=== PATIENT | female | born 1935 | race Caucasian/White ===

== ENCOUNTER 2016-10-22 13:45 | Emergency (ER) | payer MEDICARE, BC ==
--- NOTE | ~2016-10-22 | CT4 ---
[facility]. [facility] A Service of [facility] & [facility] RADIOLOGY TEXT RESULTS PATIENT: CAROLINE BERGER LOCATION: SED : 36 UNIT #: [id number] AGE: [address]: Micheline Mcclure MD SEX: F ORDER DR: [id number] [place] [id number] E MR#: [id number] Acc #: [id number] NAME: CAROLINE BERGER : 1935 SEX: F STUDY DATE/TIME: 10/22/2016 16:12 UNIT: SED ROOM: STUDY DESCRIPTION: CT Abd and Pelv Wo Cont Attending Physician: Micheline Mcclure M.D. Ordering Physician: Micheline Mcclure M.D. Primary Care Physician: Emiliano Prakash M.D. MEDICAL IMAGING REPORT This report is preliminary unless electronic signature is present. EXAM CT abdomen and pelvis, 10/22/2016 INDICATION Body aches, chills and diarrhea for 1 week. Patient does not feel good. TECHNIQUE Axial images were obtained through the abdomen and pelvis following oral contrast administration. Multiplanar reformats were obtained. No comparison. This CT exam was performed with one or more of the following radiation dose reduction techniques: automatic exposure control, adjustment of mA and/or kV according to patient size, and iterative reconstruction. FINDINGS ABDOMEN: Lung bases are clear. Gallbladder is within normal limits. Coarse calcifications are present in the medial segment of the left hepatic lobe. These are nonspecific but could be due to prior infection/inflammation or even prior trauma. There is a tiny nonobstructing stone upper pole left kidney. No ureteral stones are seen on either side and there is no hydronephrosis. The unenhanced solid organs are otherwise normal. There is mild dilatation of the infrarenal aorta measuring up to 3 cm in diameter. The GI tract is normal. PELVIS: The appendix is normal. There is colonic diverticulosis, but no focal diverticulitis is seen. The GI tract is otherwise normal. The urinary bladder is normal. Solid pelvic organs have an age-appropriate appearance. There is an old L2 compression fracture. IMPRESSION 1. No acute findings in the abdomen or pelvis. ST[facility]. [facility] A Service of [facility] & [facility] RADIOLOGY TEXT RESULTS PATIENT: CAROLINE BERGER LOCATION: SED : 36 UNIT #: [id number] AGE: [address]: Micheline Mcclure MD SEX: F ORDER DR: 2. Atherosclerotic disease with mild dilatation of the infrarenal abdominal aorta measuring 3 cm in diameter. 3. Tiny nonobstructing stone left kidney. No ureteral stones are seen and there is no hydronephrosis. 4. Sigmoid diverticulosis. The remainder of the GI tract, including the appendix is within normal limits. Dictated by... Asael Amaro Jr., M.D. THIS IS AN ELECTRONICALLY VERIFIED REPORT Asael Amaro Jr., M.D. at 10/23/2016 8:46 PM NANY/emerson TD: 10/23/2016 00:41 JOB #: [id number] MEDICAL IMAGING REPORT Page 1 of 1
--- NOTE | ~2016-10-22 | EKG ---
PATIENT: CAROLINE BERGER UNIT #: [id number] Ventricular Rate: 156 BPM Atrial Rate: 159 BPM QRS Duration: 92 ms Q-T Interval: 294 ms QTC Calculation(Bezet): 473 ms Calculated R [place]: -40 degrees Calculated T [place]: 94 degrees Diagnosis Line: Poor data quality, interpretation may be Diagnosis Line: adversely affected Diagnosis Line: Atrial fibrillation with rapid ventricular Diagnosis Line: response with premature ventricular or aberrantly Diagnosis Line: conducted complexes Diagnosis Line: Left axis deviation Diagnosis Line: Septal infarct , age undetermined Diagnosis Line: T wave abnormality, consider lateral ischemia or Diagnosis Line: digitalis effect Diagnosis Line: Abnormal ECG Diagnosis Line: Diagnosis Line: Confirmed by CRESCENCIO GARZA MD ([id number]) on Diagnosis Line: 10/24/2016 3:23:56 PM INTERPRETING MD: KAYLA CHEN
[~2016-10-22 13:45] MED LIST: CELEBREX; MULTI VITAMIN PO; SYNTHROID25 MCG PO; VITAMIN D PO
[2016-10-22] MEDS ORDERED: THYROID (14:06)
[2016-10-22] MEDS ORDERED: CELEBREX (14:06)
[2016-10-22] MEDS ORDERED: CHOLESTEROL (14:07)
[2016-10-22] MEDS ORDERED: FLAGYL PO (14:13)
[2016-10-22] MEDS ORDERED: CIPRO PO (14:13)
[2016-10-22 14:18] LABS: BASOPHIL% 0.2 % (0-2.5); HEMATOCRIT 43.3 % (35.0-45.0); HEMOGLOBIN 14.8 gm/dL (12.0-16.0); LYMPHOCYTE# 0.4 X10e3 (1.0-3.5); LYMPHOCYTE% 5.8 % (17.0-45.0); MEAN CORPUSCULAR HEMOGLOBIN 31.1 PG (28-34); MEAN CORPUSCULAR HGB CONC 34.2 g/dL (30-36); MEAN PLATELET VOLUME 9.5 FL (6.5-11.5); MONOCYTE# 0.4 X10e3 (0-1.0); NEUTROPHIL# 6.2 X10e3 (1.5-7.1); PLATELET COUNT 129 X10e3 (140-420); RED BLOOD COUNT 4.76 X10e (3.90-5.30); RED CELL DISTRIBUTION WIDTH 14.5 % (11.0-15.5)
[2016-10-22 14:27] LABS: DIFF IND NO
[2016-10-22 15:14] LABS: ALBUMIN SERUM 2.9 g/dL (3.5-5.0); BILIRUBIN, DIRECT 0.1 mg/dL (0.0-0.2); BILIRUBIN,INDIRECT 0.4 mg/dL (0.0-0.9); BILIRUBIN,TOTAL 0.5 mg/dL (0.2-2.0); BUN/CREATININE RATIO 22.3; CALCIUM SERUM 8.4 mg/dL (8.4-10.2); CREATININE SERUM 1.3 mg/dL (0.6-1.4); GLOM FILT RATE Estimated 38.7 mL/min (>60); PROTEIN TOTAL SERUM 6.7 g/dL (6.0-8.3)
[2016-10-22 15:15] LABS: POTASSIUM 2.7 mmol/L (3.5-5.1)
[2016-10-22 17:16] LABS: URINE SOURCE CLEAN CATCH
[2016-10-22 17:18] LABS: URINE APPEARANCE CLEAR; URINE BLOOD 1+ (NEG); URINE COLOR YELLOW; URINE GLUCOSE NEG (NORM); URINE KETONE NEG (NEG); URINE LEUKOCYTE ESTERASE 1+ (NEG); URINE NITRATE NEG (NEG); URINE PH 5.5 (5-8); URINE PROTEIN 2+ (NEG); URINE UROBILINOGEN 0.2 MG/DL (NORM)
[2016-10-22 17:24] LABS: MICRO INDICATED? YES; URINE BILIRUBIN NEG (NEG); URINE RBC 0-2 /[HPF] (0-2)
[2016-10-22 17:25] LABS: CULTURE INDICATED? YES; URINE BACTERIA 1+ (NEG); URINE SQUAMOUS EPITHELIAL CELL FEW /[HPF]; URINE WBC 25-50 /[HPF] (0-5)
[2016-10-22 18:53] LABS: POC - CKMB 3.6 ng/mL (0.0-7.9)
[2016-10-22 18:54] LABS: POC - TROPONIN <0.05 ng/mL (<=0.05)
== END 2016-10-22 19:57 ==
LOC: SED 13:45
PROVIDERS: Student in an Organized Health Care Education/Training Program
DX: K52.9 Noninfective gastroenteritis and colitis, unspecified (principal); I48.0 Paroxysmal atrial fibrillation; E87.6 Hypokalemia; E86.0 Dehydration; R94.5 Abnormal results of liver function studies; Z88.8 Allergy status to other drugs, medicaments and biological substances; Z79.899 Other long term (current) drug therapy
CPT/HCPCS: 36415; 74176; 80048; 80076; 81003; 82150; 82553; 83690; 84484; 85025; 87086; 93005; 96361; 96374; 96375; 99285; C9113; J2405

== ENCOUNTER 2016-11-27 09:22 | Emergency (ER) | payer MEDICARE, BC ==
--- NOTE | ~2016-11-27 | CR72 ---
[facility] A Service of [facility] & [facility] RADIOLOGY TEXT RESULTS PATIENT: CAROLINE BERGER LOCATION: SED : 37 UNIT #: [id number] AGE: [address]: Pasquale Martinez MD SEX: F ORDER DR: [id number] [place] [id number] E MR#: [id number] Acc #: [id number] NAME: CAROLINE BERGER : 1935 SEX: F STUDY DATE/TIME: 11/27/2016 10:36 UNIT: SED ROOM: STUDY DESCRIPTION: CR Chest Single View Portable Attending Physician: Pasquale Martinez M.D. Ordering Physician: Pasquale Martinez M.D. Primary Care Physician: Emiliano Prakash M.D. MEDICAL IMAGING REPORT This report is preliminary unless electronic signature is present. EXAM Chest portable 11/27/2016 1036 hours. HISTORY 81-year-old woman complaining of shortness of air and bilateral chest pain since October 22, 2016. History of atrial fibrillation. COMPARISON 11/21/2016. FINDINGS Upright portable views of the chest demonstrate cardiomegaly with tortuous aorta. There is persistent airspace density in the right upper lobe, but both lung bases with bilateral pleural effusions appearing stable to slightly increased. The left upper lung is clear. Findings have not significantly improved from 11/21/2016. This could represent persistent and atypical infection, congestive heart failure or malignancy. The density in the right upper lobe appears slightly less masslike than on 11/21/2016. Note that the lung bases were clear and there were no effusions on the fairly recent CT abdomen and pelvis exam of 10/22/2016 suggesting that this is a more acute process such as congestive heart failure rather than malignancy. Suggest continued chest x-ray surveillance and correlation with clinical symptoms. If patient fails to respond to appropriate therapy consider followup chest CT. STAT * RESULT Dictated by... Abbi Hull M.D. THIS IS AN ELECTRONICALLY VERIFIED REPORT [facility]. [facility] A Service of [facility] & [facility] RADIOLOGY TEXT RESULTS PATIENT: CAROLINE BERGER LOCATION: SED : 36 UNIT #: [id number] AGE: [address]: Pasquale Martinez MD SEX: F ORDER DR: Abbi Hull M.D. at 11/27/2016 2:31 PM RICKEY/tasha TD: 11/27/2016 11:04 JOB #: [id number] MEDICAL IMAGING REPORT Page 1 of 1
[~2016-11-27 09:22] MED LIST changes: +CHOLESTEROL; +CIPRO PO; +FLAGYL PO; +THYROID
[2016-11-27] MEDS ORDERED: SYNTHROID125 PO (09:32)
[2016-11-27] MEDS ORDERED: XARELTO20 MG PO (09:32)
[2016-11-27] MEDS ORDERED: ATORVASTATIN CA10 MG PO (09:32)
[2016-11-27] MEDS ORDERED: LOPRESSOR PO (09:33)
[2016-11-27] MEDS ORDERED: AMBIEN10 MG PO (09:33)
[2016-11-27 10:18] LABS: POC - CKMB <1.0 ng/mL (0.0-7.9); POC - TROPONIN <0.05 ng/mL (<=0.05)
[2016-11-27 10:23] LABS: BASOPHIL% 0.6 % (0-2.5); EOSINOPHIL% 0.1 % (0.0-7.0); HEMATOCRIT 41.1 % (35.0-45.0); HEMOGLOBIN 13.5 gm/dL (12.0-16.0); LYMPHOCYTE# 0.9 X10e3 (1.0-3.5); MEAN CELL VOLUME 94.7 FL (83-96); MEAN CORPUSCULAR HEMOGLOBIN 31.2 PG (28-34); MEAN CORPUSCULAR HGB CONC 32.9 g/dL (30-36); MEAN PLATELET VOLUME 9.2 FL (6.5-11.5); MONOCYTE# 0.7 X10e3 (0-1.0); MONOCYTE% 7.7 % (3.0-12.0); NEUTROPHIL% 81.6 % (40-75); PLATELET COUNT 201 X10e3 (140-420); RED BLOOD COUNT 4.33 X10e (3.90-5.30); RED CELL DISTRIBUTION WIDTH 17.6 % (11.0-15.5); WHITE BLOOD COUNT 8.5 X10e3 (4.0-10.5)
[2016-11-27] MEDS ORDERED: SYMBICORT 16010.2 GM (10:31)
[2016-11-27 10:33] LABS: DIFF IND NO
[2016-11-27 10:44] LABS: ALBUMIN SERUM 3.4 g/dL (3.5-5.0); BILIRUBIN,TOTAL 1.9 mg/dL (0.2-2.0); BUN/CREATININE RATIO 27.14; CALCIUM SERUM 8.3 mg/dL (8.4-10.2); CREATININE SERUM 0.7 mg/dL (0.6-1.4); GLOM FILT RATE Estimated 81.8 mL/min (>60); POTASSIUM 3.8 mmol/L (3.5-5.1); PROTEIN TOTAL SERUM 6.5 g/dL (6.0-8.3)
== END 2016-11-27 14:33 | disposition left against medical advice (07) ==
LOC: SED 09:22
PROVIDERS: Emergency Medicine
DX: I50.9 Heart failure, unspecified (principal); J90 Pleural effusion, not elsewhere classified; Z88.5 Allergy status to narcotic agent; Z79.899 Other long term (current) drug therapy
CPT/HCPCS: 36415; 71010; 80053; 80162; 82553; 83605; 83880; 84484; 85025; 96374; 99285; J2060